=== PATIENT | male | born 1960 | race Caucasian/White ===

== ENCOUNTER 2017-07-19 07:35 | Emergency (ER) | END 2017-07-19 09:34 | disposition home or self-care (01) ==

== ENCOUNTER 2018-09-19 16:21 | Emergency (ER) | payer MEDICAID, OTHER ==
[~2018-09-19] VITALS: Ht 157.5 cm; Wt 62.7 kg
[~2018-09-19 16:21] MED LIST: ACET500C5 PO
[2018-09-19 16:25] VITALS: Ht 157.5 cm; Wt 62.7 kg
[2018-09-19] MEDS ORDERED: SOD CHLORIDE 0.9% 1,000 ML IV STA (17:51)
[2018-09-19] MEDS ORDERED: DIAZEPAM 5 MG/ML SYG IV ONE (18:00)
[2018-09-19] MEDS ORDERED: DEXTROSE 5%-0.45% NACL 500 ML BAG IV ONE (18:00)
[2018-09-19] MEDS ORDERED: FOLIC ACID 1 MG TAB PO ONE (18:00)
[2018-09-19] MEDS ORDERED: THIAMINE 100 MG TAB PO ONE (18:00)
--- NOTE | 2018-09-19 19:16 | ERD ---
ER Documentation Chief Complaint Chief Complaint ETOH INTOXICATION, LAST INTAKE TODAY HPI 58-year-old gentleman with history of alcohol abuse issues who states that he is been drinking for several weeks straight. His last drink was yesterday evening. He is feeling slightly tremulous. He describes generalized malaise and weakness. He denies any chest pain shortness of breath hematemesis abdominal pain or back pain. No falls or injuries. Patient states that he is failed outpatient detox in the past. He is not interested in stopping drinking. He has had seizures in the past but does not take seizure medications. ROS All systems reviewed and are negative except as per history of present illness. Medications Home Meds No Active Prescriptions or Reported Meds Allergies Allergies: Coded Allergies: No Known Allergies (Verified Allergy, Mild, 03/17/12) PMhx/Soc History of Surgery: No Hx Neurological Disorder: Yes (epilepsy) Hx Respiratory Disorders: No Hx Cardiac Disorders: Yes (hypertension) Hx Miscellaneous Medical Probl: Yes Hx Alcohol Use: Yes (been drinking alcohol) Hx Substance Use: No Hx Tobacco Use: No Smoking Status: Never smoker FmHx Family History: No diabetes Physical Exam Vitals Vital Signs Date Temp Pulse Resp B/P (MAP) Pulse Ox O2 O2 Flow FiO2 Time Delivery Rate 09/19/18 97.8 120 17 156/96 97 16:25 (116) Physical Exam General: Well developed, well nourished, no acute distress Head: Normocephalic, atraumatic. Eyes: Pupils equally reactive, EOM intact ENT: Slightly dry mucous membranes Neck: Supple, no lymphadenopathy Respiratory: Lungs clear bilaterally, no distress Cardiovascular: Slight tachycardia, no murmurs, rubs, or gallops Abdominal: Soft, non-tender, non-distended, no peritoneal signs : Deferred MSK: No edema, no unilateral swelling, 5/5 strength Neurologic: Alert and oriented, moving all extremities, normal speech, no focal weakness, no cerebellar signs Skin: No rash Psych: Normal mood Result Diagram: 09/19/18 1800 09/19/18 1800 Results 24 hrs Laboratory Tests Test 09/19/18 18:00 White Blood Count 3.8 10^3/ul Red Blood Count 4.77 10^6/ul Hemoglobin 15.0 g/dl Hematocrit 42.8 % Mean Corpuscular Volume 89.7 fl Mean Corpuscular Hemoglobin 31.4 pg Mean Corpuscular Hemoglobin Concent 35.0 g/dl Red Cell Distribution Width 13.2 % Platelet Count 95 10^3/UL Mean Platelet Volume 10.3 fl Immature Granulocytes % 0.500 % Neutrophils % 43.8 % Lymphocytes % 38.2 % Monocytes % 10.5 % Eosinophils % 6.5 % Basophils % 0.5 % Nucleated Red Blood Cells % 0.0 /100WBC Immature Granulocytes # 0.020 10^3/ul Neutrophils # 1.7 10^3/ul Lymphocytes # 1.5 10^3/ul Monocytes # 0.4 10^3/ul Eosinophils # 0.3 10^3/ul Basophils # 0.0 10^3/ul Nucleated Red Blood Cells # 0.0 10^3/ul Sodium Level 136 mmol/L Potassium Level 4.2 mmol/L Chloride Level 97 mmol/L Carbon Dioxide Level 25 mmol/L Anion Gap 14 Blood Urea Nitrogen 4 mg/dl Creatinine 0.65 mg/dl Est Glomerular Filtrat Rate mL/min > 60 mL/min Glucose Level 94 mg/dl Calcium Level 9.1 mg/dl Current Medications Medications Dose Sig/Chapis Start Time Status Last (Trade) Ordered Route PRN Stop Time Admin Dose Reason Admin Sodium 1,000 ml @ Q1H STAT 09/19/18 DC 09/19/18 Chloride 1,000 mls/hr IV 17:51 18:04 09/19/18 18:50 Thiamine 100 mg ONCE ONCE 09/19/18 DC HCl PO 18:00 (Vitamin B1) 09/19/18 18:01 Folic Acid 1 mg ONCE ONCE 09/19/18 DC (Folic Acid) PO 18:00 09/19/18 18:01 Diazepam 10 mg ONCE ONCE 09/19/18 DC 09/19/18 (Valium) IV 18:00 18:11 09/19/18 18:01 500 ml ONCE ONCE 09/19/18 DC 09/19/18 Dextrose/Sodi IV 18:00 18:16 um Chloride 09/19/18 18:01 (D5-1/2ns) Procedures/MDM LAB INTERPRETATION: I reviewed the laboratory testing and it shows no evidence of acute process MEDICAL DECISION MAKING: Patient has evidence of mild withdrawal syndrome likely dehydration and malnutrition secondary to chronic alcohol abuse. No evidence of comp occasions such as cirrhosis, upper GI bleed. No evidence of falls or trauma or injury. No signs or symptoms of abdominal pain suggestive of gastritis or pancreatitis. Patient likely benefit from hydration, gentle use of benzodiazepine. ER COURSE: * Patient given IV fluids, dextrose, Valium, multivitamin. The patient's vital signs and symptoms have dramatically improved * At this point the patient can be safely discharged. He is not a good candidate for outpatient benzodiazepine therapy. Return precautions were discussed and understood. director of services resources provided. CONSULTATION: None DISPOSITION PLAN: The patient does not have an identifiable emergent medical condition that warrants inpatient hospitalization at this time. The patient is deemed safe for discharge with outpatient follow-up. We discussed follow up with the patient's primary care doctor within 24 to 48 hours as needed. We also discussed return to the emergency room for worsening symptoms or worsening condition. Outpatient referral: None required Discharge Medications: None required Departure Diagnosis: Primary Impression: Alcohol withdrawal Complication of substance-induced condition: uncomplicated Qualified Codes: F10.230 - Alcohol dependence with withdrawal, uncomplicated Additional Impressions: Alcohol abuse Dehydration Thrombocytopenia Condition: Stable Patient Instructions: Alcohol Withdrawal [facility]: [facility] Usted se rose hecho un examen mdico de control que le indica que no est en rich condicin que requiera tratamiento urgente en el Departamento de Emergencia. Un estudio ms profundo y el tratamiento de thakkar condicin pueden esperar sin ningn riesgo hasta que usted sea atendida/o en el consultorio de thakkar mdico o rich clnica. Es responsabilidad suya arreglar rich radha para el seguimiento del margarita. MANEJO DE CONDICIONES NO URGENTES EN EL FUTURO 1) Si usted tiene un mdico de atencin primaria: Usted debera llamar a thakkar mdico de atencin primaria antes de venir al departamento de emergencia. Despus de las horas de consultorio, thakkar doctor o thakkar asociado/a est disponible por telfono. El mdico o enfermero de quinn en el servicio telefnico puede asesorarle por prasanth medio para atender el problema, o margarita contrario se puede programar rich radha. 2) Si usted no tiene un mdico de atencin primaria: Llame al mdico o clnica de referencia que aparece abajo brooks las horas de consultorio para hacer rich radha para que le vean. CLINICAS: [facility] [phone] [facility] [phone] [facility] [phone] [place] [id number] [phone] [place] [address] [phone] [facility]. [phone] [address] [facility] [place] . [facility] () Usted se rose hecho un examen mdico de control que le indica que no est en rich condicin que requiera tratamiento urgente en el Departamento de Emergencia. Un estudio ms profundo y el tratamiento de thakkar condicin pueden esperar sin ningn riesgo hasta que usted sea atendida/o en el consultorio de thakkar mdico o rich clnica. Es responsabilidad suya arreglar rich radha para el seguimiento del margarita. MANEJO DE CONDICIONES NO URGENTES EN EL FUTURO 1) Si usted tiene un mdico de atencin primaria: Usted debera llamar a thakkar mdico de atencin primaria antes de venir al departamento de emergencia. Despus de las horas de consultorio, thakkar doctor o thakkar asociado/a est disponible por telfono. El mdico o enfermero de quinn en el servicio telefnico puede asesorarle por prasanth medio para atender el problema, o margarita contrario se puede programar rich radha. 2) Si usted no tiene un mdico de atencin primaria: Llame al mdico o condado institucions de referencia que aparece abajo brooks las horas de consultorio para hacer rich radha para que le vean. SI USTED NO PUEDE PAGAR PARA LES UN MEDICO puede ir a: [facility] [address] [place] [address] [facility] [address] [place] [address] [facility] [address] [place] [address] [facility] [address] [place] [address] Additional Instructions: Llame al doctor nombrado abajo (Referral Sources) MAANA y cassandra rich RADHA PARA DENTRO DE RICH SEMANA. Dgale a la secretaria que nosotros le instruimos hacer esta radha.Avise o llame si thakkar condicin se empeora antes de la radha. ANDRZEJ VELASQUEZ MD Sep 19, 2018 19:16
[2018-09-19 19:30] VITALS: BP 133/94; PULSE 78; RESP 18
== END 2018-09-19 19:46 | disposition home or self-care (01) ==
LOC: E/R 16:21 → MERGE 16:21 → E/R 19:46
DX: F10.230 Alcohol dependence with withdrawal, uncomplicated (principal); I10 Essential (primary) hypertension; E86.0 Dehydration; D69.6 Thrombocytopenia, unspecified
CPT/HCPCS: 36415; 80048; 85025; 96374; 96375; J3360; J7030; Z7502; Z7610

== ENCOUNTER 2018-12-12 14:22 | Emergency (ER) | payer MEDICAID ==
[~2018-12-12] VITALS: Ht 157.5 cm; Wt 78.0 kg
[~2018-12-12 14:22] MED LIST changes: +IBUP-1542 PO
[2018-12-12 14:25] VITALS: BP 121/72; RESP 18; Ht 157.5 cm; Wt 78.0 kg
[2018-12-12] MEDS ORDERED: LIDOCAINE 1%/EPI 30 ML INJ INJ STA (15:59)
[2018-12-12] MEDS: ACETAMINOPHEN 500 MG TAB PO STA ×2 (16:06→16:08)
[2018-12-12 18:56] VITALS: PULSE 99
== END 2018-12-12 18:56 | disposition home or self-care (01) ==
LOC: FTE 14:22
DX: S01.01XA Laceration without foreign body of scalp, initial encounter (principal); I10 Essential (primary) hypertension; Y08.02XA Assault by strike by baseball bat, initial encounter
CPT/HCPCS: 12002; 70450; 72125; Z7502; Z7610

== ENCOUNTER 2018-12-14 11:31 | Emergency (ER) | payer MEDICAID ==
[~2018-12-14] VITALS: Ht 162.6 cm; Wt 57.2 kg
[2018-12-14 11:38] VITALS: BP 126/82; PULSE 106; RESP 20; Ht 162.6 cm; Wt 57.2 kg
== END 2018-12-14 12:31 | disposition home or self-care (01) ==
LOC: E/R 11:31
DX: Z48.01 Encounter for change or removal of surgical wound dressing (principal); I10 Essential (primary) hypertension
CPT/HCPCS: 99281